=== PATIENT | male | born 1970 | race Caucasian/White ===

== ENCOUNTER 2018-05-22 14:12 | Emergency (ER) | payer MEDICARE, OTHER ==
[~2018-05-22] VITALS: Ht 190.5 cm; Wt 106.8 kg
[~2018-05-22 14:12] MED LIST: ALBU8.5H4 IH; BUDE10.23 IH; CLIN300C85 PO; CLON-527 PO; FURO-150 PO; LISI10TA4 PO; METO50TA16; NAS0.025NS NS; NORCO10T PO; ONDA8TAB9 PO; POTA20TA39 PO; RANI300C7 PO; RISP0.256 PO; STE5T PO; TEG100T PO; WARF3TAB PO; WARF6TAB PO
[2018-05-22 14:36] VITALS: BP 106/76
== END 2018-05-22 16:50 | disposition home or self-care (01) ==
LOC: ER 14:12 → EEVIPCON 14:12 → ER 16:50
DX: S39.012A Strain of muscle, fascia and tendon of lower back, initial encounter (principal); S29.011A Strain of muscle and tendon of front wall of thorax, initial encounter; I25.10 Atherosclerotic heart disease of native coronary artery without angina pectoris; I10 Essential (primary) hypertension; J44.9 Chronic obstructive pulmonary disease, unspecified; G89.29 Other chronic pain; F12.90 Cannabis use, unspecified, uncomplicated; Z88.5 Allergy status to narcotic agent; Z88.8 Allergy status to other drugs, medicaments and biological substances; Z79.01 Long term (current) use of anticoagulants; Z79.899 Other long term (current) drug therapy; Z98.890 Other specified postprocedural states; W01.0XXA Fall on same level from slipping, tripping and stumbling without subsequent striking against object, initial encounter; Y93.89 Activity, other specified; Y92.89 Other specified places as the place of occurrence of the external cause; Y99.8 Other external cause status
CPT/HCPCS: 72100; 99284

== ENCOUNTER 2021-06-26 18:08 | Emergency (ER) | payer BC, MEDICAID ==
[~2021-06-26 18:08] MED LIST changes: +CLIN-97 PO; -CLIN300C85 PO; +LISI10TA27 PO; -LISI10TA4 PO
--- NOTE | 2021-06-26 19:53 | NUR ---
not in lobby. called patient at [id number]. called inside and outside. pt not found
== END 2021-06-26 21:52 | disposition left against medical advice (07) ==
LOC: ER 18:09
DX: Z53.21 Procedure and treatment not carried out due to patient leaving prior to being seen by health care provider (principal)

== ENCOUNTER 2021-09-17 16:45 | Emergency (ER) | payer BC, MEDICAID ==
[~2021-09-17] VITALS: Ht 188 cm; Wt 143.0 kg
--- NOTE | 2021-09-17 19:30 | NUR ---
pt has read fact sheet on [facility], he verbalizes understanding the information about [facility], no questions, "I would like to receive medication"
[2021-09-17] MEDS ORDERED: CASIRIVIMAB/IMDEVIMAB inject. 10 ML in normal saline 100ml IV soln 100 ML IV ONE (19:45)
[2021-09-17 21:14] VITALS: BP 137/100
== END 2021-09-17 21:16 | disposition home or self-care (01) ==
LOC: ER 16:46
DX: U07.1 COVID-19 (principal); I10 Essential (primary) hypertension; J44.9 Chronic obstructive pulmonary disease, unspecified; F43.10 Post-traumatic stress disorder, unspecified; I50.9 Heart failure, unspecified; I11.0 Hypertensive heart disease with heart failure; G89.29 Other chronic pain; I25.10 Atherosclerotic heart disease of native coronary artery without angina pectoris; F12.90 Cannabis use, unspecified, uncomplicated; Z87.11 Personal history of peptic ulcer disease; Z79.01 Long term (current) use of anticoagulants; Z72.89 Other problems related to lifestyle
CPT/HCPCS: 87502; 87503; 87635; 99283; C9803; M0243; Q0244

== ENCOUNTER 2022-06-02 18:56 | Emergency (ER) | payer MEDICARE, MEDICAID ==
[~2022-06-02] VITALS: Ht 188 cm; Wt 143.2 kg
[2022-06-02 19:35] LABS: BASOPHILS # (AUTO) 0.1 X10'3 (0-0.2); EOSINOPHILS # (AUTO) 0.1 X10'3 (0-0.9); LYMPHOCYTES # (AUTO) 1.9 X10'3 (1.1-4.8); MEAN CORPUSCULAR HGB CONC 34.4 g/dL (33.0-36.5); MONOCYTES # (AUTO) 0.5 X10'3 (0-0.9)
[2022-06-02 19:36] LABS: BASOPHILS % (AUTO) 1.4 % (0-1); EOSINOPHILS % (AUTO) 1.7 % (0-6); HEMATOCRIT 46.4 % (42.0-52.0); LYMPHOCYTES % (AUTO) 28.6 % (21-51); MEAN CORPUSCULAR HEMOGLOBIN 29.6 PG (27.0-31.0); MEAN PLATELET VOLUME 9.7 FL (7.4-10.4); MONOCYTES % (AUTO) 6.8 % (2-12); NEUTROPHILS # (AUTO) 4.1 X10'3 (1.8-7.7); NEUTROPHILS % (AUTO) 61.5 % (42-75); PLATELET COUNT 141 X10'3 (140-440); RED BLOOD COUNT 5.39 X10'6 (4.70-6.10); RED CELL DISTRIBUTION WIDTH 13.8 % (11.5-14.5); WHITE BLOOD COUNT 6.7 X10'3 (4.5-11.0)
[2022-06-02 19:49] LABS: ALANINE AMINOTRANSFERASE 33 U/L (12-78); ALBUMIN 3.7 G/DL (3.4-5.0); ALBUMIN/GLOBULIN RATIO 1.1 (1.1-1.5); ALKALINE PHOSPHATASE 83 IU/L (46-116); ANION GAP 9 (8-16); BILIRUBIN,TOTAL 0.4 MG/DL (0.1-1.0); BLOOD UREA NITROGEN 16 MG/DL (7-18); BUN/CREATININE RATIO 15.5 (5.4-32.0); CALCIUM 8.6 MG/DL (8.5-10.1); CHLORIDE 102 MMOL/L (99-107); CREATININE 1.03 MG/DL (0.60-1.10); LIPASE 74 U/L (73-393); SODIUM 138 MMOL/L (135-145); TOTAL CARBON DIOXIDE 27.5 MMOL/L (24-32); TOTAL PROTEIN 7.2 G/DL (6.4-8.2); eGFR 76 ML/MIN
[2022-06-02 20:09] VITALS: BP 154/92
[2022-06-02 20:10] LABS: ASPARTATE AMINO TRANSFERASE 26 U/L (10-37); GLUCOSE 176 MG/DL (70-104)
[2022-06-02 20:11] LABS: POTASSIUM 3.9 MMOL/L (3.5-5.1)
[2022-06-02 20:52] LABS: CLARITY,URINE CLEAR (Clear); COLOR,URINE YELLOW (Yellow); GLUCOSE, URINE NEGATIVE (Neg); KETONES,URINE NEGATIVE (Neg); LEUKOCYTE ESTERASE ,URINE NEGATIVE (Neg); NITRITES, URINE NEGATIVE (Neg); OCCULT BLOOD,URINE NEGATIVE (Neg); PH,URINE 6.5 (4.8-8.0); PROTEIN,URINE NEGATIVE (Neg); UROBILINOGEN,URINE 0.2 E.U/dL (0.2-1.0)
[2022-06-02 20:53] LABS: UA COLLECTION TYPE URINAL
== END 2022-06-02 21:21 | disposition home or self-care (01) ==
LOC: ER 18:58
DX: M54.59 Other low back pain (principal); I11.0 Hypertensive heart disease with heart failure; J44.9 Chronic obstructive pulmonary disease, unspecified; F32.9 Major depressive disorder, single episode, unspecified; F12.10 Cannabis abuse, uncomplicated; F17.210 Nicotine dependence, cigarettes, uncomplicated; Z88.5 Allergy status to narcotic agent; Z88.8 Allergy status to other drugs, medicaments and biological substances; Z79.899 Other long term (current) drug therapy; Z79.2 Long term (current) use of antibiotics
CPT/HCPCS: 36415; 72100; 72220; 80053; 81003; 83690; 85025; 99284

== ENCOUNTER 2022-06-10 19:00 | Emergency (ER) | payer MEDICARE, MEDICAID ==
[~2022-06-10] VITALS: Ht 188 cm; Wt 145.4 kg
[2022-06-10 19:28] VITALS: BP 142/93
[2022-06-10] MEDS ORDERED: dexamethasone sod phosphate 10mg/ml inj IM STA (21:24)
[2022-06-10] MEDS ORDERED: cyclobenzaprine 10mg tablet PO ONE (21:25)
[2022-06-10] MEDS ORDERED: ketorolac tromethamine 15mg/ml inj. IM ONE (21:25)
[2022-06-10] MEDS ORDERED: CYCL-1 PO (21:59)
[2022-06-10] MEDS ORDERED: IBUP-1984 PO (21:59)
[2022-06-10] MEDS ORDERED: METH4TAB3 PO (21:59)
== END 2022-06-10 22:12 | disposition home or self-care (01) ==
LOC: ER 19:02
DX: M54.42 Lumbago with sciatica, left side (principal); I11.0 Hypertensive heart disease with heart failure; F32.A Depression, unspecified; J44.9 Chronic obstructive pulmonary disease, unspecified; F12.10 Cannabis abuse, uncomplicated; Z88.5 Allergy status to narcotic agent; Z88.8 Allergy status to other drugs, medicaments and biological substances; Z79.899 Other long term (current) drug therapy
CPT/HCPCS: 96372; 99284; J1100; J1885

== ENCOUNTER 2022-11-22 18:22 | Emergency (ER) | payer MEDICARE, MEDICAID ==
[~2022-11-22] VITALS: Ht 188 cm; Wt 147.1 kg
[~2022-11-22 18:22] MED LIST changes: -ALBU8.5H4 IH; -BUDE10.23 IH; -CLIN-97 PO; -CLON-527 PO; +CYCL-1 PO; -FURO-150 PO; -METO50TA16; -NAS0.025NS NS; -NORCO10T PO; -ONDA8TAB9 PO; +PANT-47 PO; -POTA20TA39 PO; -RANI300C7 PO; -RISP0.256 PO; -STE5T PO; -TEG100T PO; -WARF3TAB PO; -WARF6TAB PO
[2022-11-22 19:06] LABS: BASOPHILS # (AUTO) 0.1 X10'3 (0-0.2); BASOPHILS % (AUTO) 0.7 % (0-1); EOSINOPHILS # (AUTO) 0.1 X10'3 (0-0.9); EOSINOPHILS % (AUTO) 1.5 % (0-6); HEMOGLOBIN 14.6 g/dl (14.0-17.9); LYMPHOCYTES # (AUTO) 1.6 X10'3 (1.1-4.8); LYMPHOCYTES % (AUTO) 16.8 % (21-51); MEAN CORPUSCULAR HGB CONC 33.1 g/dL (33.0-36.5); MEAN CORPUSCULAR VOLUME 87.6 FL (78-98); MEAN PLATELET VOLUME 9.1 FL (7.4-10.4); MONOCYTES # (AUTO) 0.6 X10'3 (0-0.9); MONOCYTES % (AUTO) 6.1 % (2-12); NEUTROPHILS # (AUTO) 7.3 X10'3 (1.8-7.7); NEUTROPHILS % (AUTO) 74.9 % (42-75); PLATELET COUNT 151 X10'3 (140-440); RED BLOOD COUNT 5.02 X10'6 (4.70-6.10); RED CELL DISTRIBUTION WIDTH 14.1 % (11.5-14.5); WHITE BLOOD COUNT 9.8 X10'3 (4.5-11.0)
[2022-11-22 19:35] LABS: ALANINE AMINOTRANSFERASE 34 U/L (12-78); ALBUMIN 4.1 G/DL (3.4-5.0); ALBUMIN/GLOBULIN RATIO 1.2 (1.1-1.5); ALKALINE PHOSPHATASE 74 IU/L (46-116); ANION GAP 9 (8-16); ASPARTATE AMINO TRANSFERASE 35 U/L (10-37); BILIRUBIN,TOTAL 0.5 MG/DL (0.1-1.0); BLOOD UREA NITROGEN 24 MG/DL (7-18); CALCIUM 8.9 MG/DL (8.5-10.1); CHLORIDE 102 MMOL/L (99-107); CREATININE 1.09 MG/DL (0.60-1.10); GLUCOSE 152 MG/DL (70-104); MAGNESIUM 1.8 MG/DL (1.5-2.4); POTASSIUM 3.9 MMOL/L (3.5-5.1); SODIUM 139 MMOL/L (135-145); TOTAL CARBON DIOXIDE 28.1 MMOL/L (24-32); TOTAL PROTEIN 7.4 G/DL (6.4-8.2); eGFR 71 ML/MIN
[2022-11-22 23:19] VITALS: BP 151/104
== END 2022-11-22 23:21 | disposition home or self-care (01) ==
LOC: ER 18:23
DX: R07.9 Chest pain, unspecified (principal); M54.2 Cervicalgia; R19.7 Diarrhea, unspecified
CPT/HCPCS: 36415; 71045; 80053; 83735; 83880; 84484; 85025; 93005; 99285

== ENCOUNTER 2022-11-29 19:23 | Emergency (ER) | payer MEDICARE, MEDICAID ==
[~2022-11-29] VITALS: Ht 188 cm; Wt 146.8 kg
[2022-11-29 19:28] VITALS: BP 161/109
[2022-11-29] MEDS ORDERED: CEPH250T PO (22:01)
== END 2022-11-29 22:23 | disposition home or self-care (01) ==
LOC: ER 19:25
DX: L03.311 Cellulitis of abdominal wall (principal); G89.29 Other chronic pain; F32.A Depression, unspecified; F12.10 Cannabis abuse, uncomplicated; J44.9 Chronic obstructive pulmonary disease, unspecified; Z88.5 Allergy status to narcotic agent; Z79.899 Other long term (current) drug therapy; Z88.8 Allergy status to other drugs, medicaments and biological substances
CPT/HCPCS: 99283; A6407; A6449

== ENCOUNTER 2022-12-02 19:17 | Emergency (ER) | payer MEDICARE, MEDICAID ==
[~2022-12-02] VITALS: Ht 188 cm; Wt 150.0 kg
[~2022-12-02 19:17] MED LIST changes: +CEPH250T PO
[2022-12-02 19:25] VITALS: BP 122/77
[2022-12-02] MEDS ORDERED: SULF1TAB45 PO (21:49)
[2022-12-02] MEDS ORDERED: CEPH-585 PO (21:49)
[2022-12-02] MEDS ORDERED: sulfamethoxazole/trimethoprim DS (800/160mg) tablet PO ONE (21:50)
[2022-12-02] MEDS ORDERED: cephalexin 250mg capsule PO ONE (21:50)
== END 2022-12-02 22:09 | disposition home or self-care (01) ==
LOC: ER 19:17
DX: L03.221 Cellulitis of neck (principal); J44.9 Chronic obstructive pulmonary disease, unspecified; G89.29 Other chronic pain; F17.200 Nicotine dependence, unspecified, uncomplicated; F12.10 Cannabis abuse, uncomplicated; F32.A Depression, unspecified; Z88.5 Allergy status to narcotic agent; Z88.8 Allergy status to other drugs, medicaments and biological substances; Z79.899 Other long term (current) drug therapy; Z79.1 Long term (current) use of non-steroidal anti-inflammatories (NSAID); Z79.2 Long term (current) use of antibiotics
CPT/HCPCS: 99283

== ENCOUNTER 2023-06-25 03:55 | Emergency (ER) | payer MEDICARE, MEDICAID ==
[~2023-06-25] VITALS: Ht 185.4 cm; Wt 106.4 kg
[~2023-06-25 03:55] MED LIST changes: +CEPH-585 PO
[2023-06-25] MEDS ORDERED: normal saline 1000ML IV soln IVB ONE (04:00)
[2023-06-25 04:02] VITALS: BP 149/91; PULSE 91; RESP 18; TEMP 98; O2SAT 95
[2023-06-25 04:47] LABS: EOSINOPHILS # (AUTO) 0.1 X10'3 (0-0.9); LYMPHOCYTES # (AUTO) 0.3 X10'3 (1.1-4.8); MEAN CORPUSCULAR VOLUME 86.7 FL (78-98); WHITE BLOOD COUNT 8.8 X10'3 (4.5-11.0)
[2023-06-25 04:48] LABS: BASOPHILS % (AUTO) 0.4 % (0-1); EOSINOPHILS % (AUTO) 0.9 % (0-6); HEMATOCRIT 44.9 % (42.0-52.0); HEMOGLOBIN 15.3 g/dl (14.0-17.9); LYMPHOCYTES % (AUTO) 3.2 % (21-51); MEAN CORPUSCULAR HEMOGLOBIN 29.5 PG (27.0-31.0); MEAN PLATELET VOLUME 9.3 FL (7.4-10.4); MONOCYTES # (AUTO) 0.2 X10'3 (0-0.9); MONOCYTES % (AUTO) 2.8 % (2-12); NEUTROPHILS # (AUTO) 8.2 X10'3 (1.8-7.7); NEUTROPHILS % (AUTO) 92.7 % (42-75); PLATELET COUNT 122 X10'3 (140-440); RED BLOOD COUNT 5.18 X10'6 (4.70-6.10); RED CELL DISTRIBUTION WIDTH 13.9 % (11.5-14.5)
[2023-06-25 04:59] LABS: ALANINE AMINOTRANSFERASE 37 U/L (12-78); ALBUMIN 3.8 G/DL (3.4-5.0); ALBUMIN/GLOBULIN RATIO 1.2 (1.1-1.5); ALKALINE PHOSPHATASE 55 IU/L (46-116); ANION GAP 11 (8-16); ASPARTATE AMINO TRANSFERASE 26 U/L (10-37); BILIRUBIN,TOTAL 0.7 MG/DL (0.1-1.0); BLOOD UREA NITROGEN 27 MG/DL (7-18); BUN/CREATININE RATIO 26.2 (10.0-20.0); CALCIUM 9.1 MG/DL (8.5-10.1); CHLORIDE 101 MMOL/L (99-107); CREATININE 1.03 MG/DL (0.60-1.10); GLUCOSE 169 MG/DL (70-104); POTASSIUM 4.2 MMOL/L (3.5-5.1); SODIUM 138 MMOL/L (135-145); TOTAL CARBON DIOXIDE 26.5 MMOL/L (24-32); TOTAL PROTEIN 6.9 G/DL (6.4-8.2); eGFR 76 ML/MIN
[2023-06-25] MEDS ORDERED: ONDA4TAB12 PO (04:59)
--- NOTE | 2023-06-25 05:58 | NUR ---
IV DC'D PT BEING DISCHARGED DRESSING APPLIED
== END 2023-06-25 06:05 | disposition home or self-care (01) ==
LOC: ER 03:55
DX: A08.4 Viral intestinal infection, unspecified (principal); L30.9 Dermatitis, unspecified; R11.2 Nausea with vomiting, unspecified; J44.9 Chronic obstructive pulmonary disease, unspecified; G89.29 Other chronic pain; I50.9 Heart failure, unspecified; F12.90 Cannabis use, unspecified, uncomplicated; Z72.89 Other problems related to lifestyle; Z88.8 Allergy status to other drugs, medicaments and biological substances; Z79.2 Long term (current) use of antibiotics; Z79.899 Other long term (current) drug therapy
CPT/HCPCS: 36415; 80053; 85025; 96360; 99283; J7030

== ENCOUNTER 2023-08-05 15:43 | Emergency (ER) | payer MEDICARE, MEDICAID ==
[~2023-08-05] VITALS: Ht 188 cm; Wt 141.8 kg
[~2023-08-05 15:43] MED LIST changes: +ONDA4TAB12 PO
[2023-08-05 16:03] LABS: BASOPHILS # (AUTO) 0.1 X10'3 (0-0.2); BASOPHILS % (AUTO) 0.6 % (0-1); EOSINOPHILS # (AUTO) 0.1 X10'3 (0-0.9); EOSINOPHILS % (AUTO) 0.7 % (0-6); HEMATOCRIT 45.6 % (42.0-52.0); HEMOGLOBIN 15.2 g/dl (14.0-17.9); LYMPHOCYTES # (AUTO) 1.7 X10'3 (1.1-4.8); LYMPHOCYTES % (AUTO) 16.7 % (21-51); MEAN CORPUSCULAR HEMOGLOBIN 29.5 PG (27.0-31.0); MEAN CORPUSCULAR HGB CONC 33.4 g/dL (33.0-36.5); MEAN CORPUSCULAR VOLUME 88.4 FL (78-98); MONOCYTES # (AUTO) 0.6 X10'3 (0-0.9); MONOCYTES % (AUTO) 5.6 % (2-12); NEUTROPHILS # (AUTO) 7.8 X10'3 (1.8-7.7); NEUTROPHILS % (AUTO) 76.4 % (42-75); PLATELET COUNT 179 X10'3 (140-440); RED BLOOD COUNT 5.16 X10'6 (4.70-6.10); RED CELL DISTRIBUTION WIDTH 13.7 % (11.5-14.5); WHITE BLOOD COUNT 10.2 X10'3 (4.5-11.0)
[2023-08-05 16:26] LABS: ALANINE AMINOTRANSFERASE 46 U/L (12-78); ALBUMIN 4.2 G/DL (3.4-5.0); ALBUMIN/GLOBULIN RATIO 1.2 (1.1-1.5); ALKALINE PHOSPHATASE 66 IU/L (46-116); ANION GAP 3 (8-16); ASPARTATE AMINO TRANSFERASE 22 U/L (10-37); BILIRUBIN,TOTAL 0.6 MG/DL (0.1-1.0); BLOOD UREA NITROGEN 15 MG/DL (7-18); BUN/CREATININE RATIO 15.6 (10.0-20.0); CALCIUM 9.2 MG/DL (8.5-10.1); CHLORIDE 100 MMOL/L (99-107); CREATININE 0.96 MG/DL (0.60-1.10); GLUCOSE 108 MG/DL (70-104); POTASSIUM 4.1 MMOL/L (3.5-5.1); SODIUM 138 MMOL/L (135-145); TOTAL PROTEIN 7.6 G/DL (6.4-8.2); eCRCL 106 ML/MIN; eGFR 83 ML/MIN
[2023-08-05 16:34] LABS: PRO BRAIN NATRIURETIC PEPTIDE 198 PG/ML (0-125)
[2023-08-05] MEDS ORDERED: rifampin 300mg capsule PO STA (19:56)
[2023-08-05] MEDS ORDERED: DOXYCYCLINE 100MG CAPSULE PO STA (19:56)
[2023-08-05] MEDS ORDERED: RIFA300C9 PO (20:12)
[2023-08-05] MEDS ORDERED: DOXY-1 PO (20:12)
[2023-08-05 20:30] VITALS: BP 142/89; PULSE 67; RESP 18; TEMP 98.1; O2SAT 97
== END 2023-08-05 20:33 | disposition home or self-care (01) ==
LOC: ER 15:45
DX: L03.312 Cellulitis of back [any part except buttock and flank] (principal); J44.9 Chronic obstructive pulmonary disease, unspecified; F31.9 Bipolar disorder, unspecified; F12.10 Cannabis abuse, uncomplicated; Z87.81 Personal history of (healed) traumatic fracture; Z88.5 Allergy status to narcotic agent; Z88.8 Allergy status to other drugs, medicaments and biological substances; Z79.899 Other long term (current) drug therapy
CPT/HCPCS: 36415; 71045; 80053; 83880; 84484; 85025; 93005; 99285

== ENCOUNTER 2024-02-09 09:45 | Emergency (ER) | payer OTHER, MEDICARE, MEDICAID ==
[~2024-02-09] VITALS: Ht 188 cm; Wt 157.7 kg
[~2024-02-09 09:45] MED LIST changes: -CEPH-585 PO; -CEPH250T PO; +RIFA300C9 PO
[2024-02-09 12:44] VITALS: BP 142/100; PULSE 89; RESP 17; TEMP 98.2; O2SAT 99
[2024-02-09] MEDS ORDERED: SULF1TAB48 PO (12:44)
[2024-02-09] MEDS ORDERED: MUPI22OI30 TOP (12:44)
== END 2024-02-09 12:55 | disposition home or self-care (01) ==
LOC: ER 09:46
DX: N49.2 Inflammatory disorders of scrotum (principal); J44.9 Chronic obstructive pulmonary disease, unspecified; I50.9 Heart failure, unspecified; F12.90 Cannabis use, unspecified, uncomplicated; Z88.5 Allergy status to narcotic agent; Z88.8 Allergy status to other drugs, medicaments and biological substances; Z79.899 Other long term (current) drug therapy
CPT/HCPCS: 99283

== ENCOUNTER 2024-02-15 19:06 | Emergency (ER) | payer OTHER, MEDICARE, MEDICAID ==
[~2024-02-15] VITALS: Ht 188 cm; Wt 159.0 kg
[~2024-02-15 19:06] MED LIST changes: +MUPI22OI30 TOP; +SULF1TAB48 PO
[2024-02-15 20:03] LABS: BASOPHILS # (AUTO) 0.1 X10'3 (0-0.2); BASOPHILS % (AUTO) 1.1 % (0-1); EOSINOPHILS # (AUTO) 0.2 X10'3 (0-0.9); EOSINOPHILS % (AUTO) 1.8 % (0-6); HEMATOCRIT 50.1 % (42.0-52.0); HEMOGLOBIN 16.6 g/dl (14.0-17.9); LYMPHOCYTES # (AUTO) 2.5 X10'3 (1.1-4.8); LYMPHOCYTES % (AUTO) 26.4 % (21-51); MEAN CORPUSCULAR HEMOGLOBIN 28.9 PG (27.0-31.0); MEAN CORPUSCULAR HGB CONC 33.1 g/dL (33.0-36.5); MEAN CORPUSCULAR VOLUME 87.3 FL (78-98); MEAN PLATELET VOLUME 9.5 FL (7.4-10.4); MONOCYTES # (AUTO) 0.8 X10'3 (0-0.9); NEUTROPHILS # (AUTO) 5.9 X10'3 (1.8-7.7); NEUTROPHILS % (AUTO) 62.7 % (42-75); PLATELET COUNT 174 X10'3 (140-440); RED BLOOD COUNT 5.74 X10'6 (4.70-6.10); RED CELL DISTRIBUTION WIDTH 14.5 % (11.5-14.5); WHITE BLOOD COUNT 9.4 X10'3 (4.5-11.0)
[2024-02-15 20:04] LABS: ALANINE AMINOTRANSFERASE 63 U/L (12-78); ALBUMIN 4.4 G/DL (3.4-5.0); ALBUMIN/GLOBULIN RATIO 1.1 (1.1-1.5); ALKALINE PHOSPHATASE 63 IU/L (46-116); AMYLASE 45 U/L (25-115); ANION GAP 6 (8-16); ASPARTATE AMINO TRANSFERASE 32 U/L (10-37); BILIRUBIN,TOTAL 0.5 MG/DL (0.1-1.0); BLOOD UREA NITROGEN 21 MG/DL (7-18); CALCIUM 10.1 MG/DL (8.5-10.1); CHLORIDE 102 MMOL/L (99-107); CREATININE 1.31 MG/DL (0.60-1.10); GLUCOSE 126 MG/DL (70-104); LIPASE 26 U/L (16-77); MAGNESIUM 2.2 MG/DL (1.5-2.4); POTASSIUM 4.8 MMOL/L (3.5-5.1); SODIUM 140 MMOL/L (135-145); TOTAL CARBON DIOXIDE 31.8 MMOL/L (24-32); TOTAL PROTEIN 8.4 G/DL (6.4-8.2); eCRCL 77 ML/MIN; eGFR 57 ML/MIN
[2024-02-15] MEDS ORDERED: iohexol 300mg/ml 100ml inj. ONE (20:08)
[2024-02-15 21:12] VITALS: BP 127/99; PULSE 69; RESP 18; TEMP 98; O2SAT 95
[2024-02-15 21:26] LABS: BILIRUBIN,URINE NEGATIVE (Neg); CLARITY,URINE CLEAR (Clear); COLOR,URINE STRAW (Yellow); GLUCOSE, URINE NEGATIVE (Neg); KETONES,URINE NEGATIVE (Neg); LEUKOCYTE ESTERASE ,URINE NEGATIVE (Neg); NITRITES, URINE NEGATIVE (Neg); OCCULT BLOOD,URINE NEGATIVE (Neg); PROTEIN,URINE NEGATIVE (Neg); UROBILINOGEN,URINE 0.2 E.U/dL (0.2-1.0)
[2024-02-15 21:28] LABS: UA COLLECTION TYPE CLN CATCH MIDSTREAM
[2024-02-15] MEDS ORDERED: DIPH25CA52 PO (21:48)
[2024-02-15] MEDS ORDERED: DOCU-148 PO (21:48)
== END 2024-02-15 21:53 | disposition home or self-care (01) ==
LOC: ER 19:07
DX: K59.00 Constipation, unspecified (principal); R21 Rash and other nonspecific skin eruption; E86.0 Dehydration; J44.9 Chronic obstructive pulmonary disease, unspecified; G89.29 Other chronic pain; F32.A Depression, unspecified; I50.9 Heart failure, unspecified; I25.10 Atherosclerotic heart disease of native coronary artery without angina pectoris; F12.90 Cannabis use, unspecified, uncomplicated; Z72.89 Other problems related to lifestyle; Z88.5 Allergy status to narcotic agent; Z88.8 Allergy status to other drugs, medicaments and biological substances; Z79.899 Other long term (current) drug therapy; Z79.2 Long term (current) use of antibiotics
CPT/HCPCS: 36415; 71045; 74177; 80053; 81003; 82150; 83690; 83735; 84484; 85025; 93005; 99285; J3490; J7030; Q9967

== ENCOUNTER 2024-05-29 13:00 | Inpatient (IN) | payer MEDICARE, MEDICAID ==
[~2024-05-29] VITALS: Ht 188 cm; Wt 160.7 kg
[~2024-05-29 13:00] MED LIST changes: +DIPH25CA52 PO; +DOCU-148 PO; -MUPI22OI30 TOP; +ONDA-243 PO; -ONDA4TAB12 PO; +RIFA300C65 PO; -RIFA300C9 PO; -SULF1TAB48 PO
[2024-05-29] MEDS ORDERED: LEVO25TA7 PO (13:17)
[2024-05-29] MEDS ORDERED: WARF-55 PO (13:17)
[2024-05-29] MEDS ORDERED: METO25TA6 PO (13:17)
[2024-05-29 13:46] LABS: BASOPHILS # (AUTO) 0.1 X10'3 (0-0.2); BASOPHILS % (AUTO) 1.1 % (0-1); EOSINOPHILS # (AUTO) 0.1 X10'3 (0-0.9); EOSINOPHILS % (AUTO) 1.3 % (0-6); HEMATOCRIT 44.1 % (42.0-52.0); HEMOGLOBIN 14.6 g/dl (14.0-17.9); LYMPHOCYTES # (AUTO) 1.6 X10'3 (1.1-4.8); LYMPHOCYTES % (AUTO) 22.1 % (21-51); MEAN CORPUSCULAR HEMOGLOBIN 29.4 PG (27.0-31.0); MEAN CORPUSCULAR HGB CONC 33.1 g/dL (33.0-36.5); MEAN CORPUSCULAR VOLUME 88.9 FL (78-98); MONOCYTES # (AUTO) 0.5 X10'3 (0-0.9); NEUTROPHILS # (AUTO) 4.9 X10'3 (1.8-7.7); NEUTROPHILS % (AUTO) 68.5 % (42-75); PLATELET COUNT 127 X10'3 (140-440); RED BLOOD COUNT 4.96 X10'6 (4.70-6.10); RED CELL DISTRIBUTION WIDTH 14.3 % (11.5-14.5); WHITE BLOOD COUNT 7.1 X10'3 (4.5-11.0)
[2024-05-29 14:00] LABS: ALANINE AMINOTRANSFERASE 56 U/L (12-78); ALBUMIN 3.7 G/DL (3.4-5.0); ALBUMIN/GLOBULIN RATIO 1.1 (1.1-1.5); ALKALINE PHOSPHATASE 60 IU/L (46-116); ANION GAP 4 (8-16); ASPARTATE AMINO TRANSFERASE 34 U/L (10-37); BILIRUBIN,TOTAL 0.8 MG/DL (0.1-1.0); BLOOD UREA NITROGEN 20 MG/DL (7-18); BUN/CREATININE RATIO 16.3 (10.0-20.0); CALCIUM 8.5 MG/DL (8.5-10.1); CHLORIDE 101 MMOL/L (99-107); CREATININE 1.23 MG/DL (0.60-1.10); GLUCOSE 169 MG/DL (70-104); POTASSIUM 3.9 MMOL/L (3.5-5.1); SODIUM 138 MMOL/L (135-145); TOTAL CARBON DIOXIDE 33.4 MMOL/L (24-32); eCRCL 82 ML/MIN; eGFR 62 ML/MIN
[2024-05-29 14:08] LABS: PRO BRAIN NATRIURETIC PEPTIDE 502 PG/ML (0-125)
[2024-05-29] MEDS ORDERED: mag hydrox/Alum hydrox/simeth 30ml oral suspension PO PRN (15:10)
[2024-05-29] MEDS ORDERED: magnesium 4gm in 100ml NS 100 ML IV PRN (15:10)
[2024-05-29] MEDS ORDERED: acetaminophen 325mg tablet PO PRN (15:10)
[2024-05-29] MEDS ORDERED: ondansetron/PF 4mg/2ml inj IV PRN (15:10)
[2024-05-29] MEDS ORDERED: potassium Cl 20 mEq SR tablet PO PRN ×2 (15:10)
[2024-05-29] MEDS ORDERED: magnesium Cl slow-release 64mg tablet PO PRN (15:10)
[2024-05-29] MEDS ORDERED: magnesium 2GM in 50ml NS 50 ML IV PRN (15:10)
[2024-05-29] MEDS ORDERED: potassium Cl 40MEQ/1/2NS 520ml 520 ML IV PRN (15:10)
[2024-05-29] MEDS ORDERED: magnesium hydroxide 30ml (MOM) UD suspension PO PRN (15:10)
[2024-05-29 15:41] LABS: APTT 33 SECONDS (22-32); INR 3.2 INR; PROTHROMBIN TIME 30.7 SECONDS (9.0-12.0)
[2024-05-29 15:43] LABS: MAGNESIUM 2.1 MG/DL (1.5-2.4)
[2024-05-29] MEDS ORDERED: dextrose 50%-water 50ml dispensing syringe IV PRN ×2 (17:10)
[2024-05-29] MEDS ORDERED: DEXTROSE 15 GM of carb/4 tabs (each vial/BOTTLE has 4 tablets) PO PRN ×2 (17:10)
[2024-05-29] MEDS ORDERED: glucagon, human recombinant 1mg kit SUBCUT PRN (17:10)
[2024-05-29 17:38] LABS: HEMOGLOBIN A1C 7.6 % (4.5-6.2)
[2024-05-29 18:32] LABS: BILIRUBIN,URINE NEGATIVE (Neg); CLARITY,URINE CLEAR (Clear); GLUCOSE, URINE NEGATIVE (Neg); KETONES,URINE NEGATIVE (Neg); LEUKOCYTE ESTERASE ,URINE NEGATIVE (Neg); NITRITES, URINE NEGATIVE (Neg); OCCULT BLOOD,URINE NEGATIVE (Neg); PH,URINE 7.5 (4.8-8.0); PROTEIN,URINE NEGATIVE (Neg); UROBILINOGEN,URINE 0.2 E.U/dL (0.2-1.0)
[2024-05-29 18:40] LABS: UA COLLECTION TYPE CLN CATCH MIDSTREAM
[2024-05-29 18:41] LABS: COLOR,URINE DARK YELLOW (Yellow)
[2024-05-29] MEDS: PERFLUTREN PROTEIN-A MICROSPHR (Optison) 0.22 MG/ML 3ML VIAL IV ONE (18:41)
[2024-05-29 18:48] LABS: THYROID STIMULATING HORMONE 5.27 ulU/ml (0.34-4.50)
[2024-05-29] MEDS: furosemide 10 MG/1 ML 10ml inj IV ONE (19:11)
[2024-05-29] MEDS: K and/or MAG REPLACEMENT MC SCH (20:00)
[2024-05-29] MEDS: furosemide 10 MG/1 ML 10ml inj IV SCH (20:00)
[2024-05-29] MEDS: INSULIN LISPRO 100 UNIT/ML INSULN.PEN MULTI-DOSE SQ SCH (21:00)
[2024-05-29] MEDS: lisinopril 10 MG tablet PO SCH (21:24)
[2024-05-29] MEDS: warfarin 5mg tablet PO ONE (21:25)
[2024-05-29 22:50] VITALS: BP 153/80; PULSE 48; RESP 18; TEMP 97.7; O2SAT 95
[2024-05-30] VITALS: RESP 14; O2SAT 95
[2024-05-30 02:00] VITALS: BP 140/85; PULSE 49; RESP 14; TEMP 97.9; O2SAT 92
[2024-05-30 02:44] LABS: MAGNESIUM 2.2 MG/DL (1.5-2.4); PHOSPHORUS 3.7 MG/DL (2.3-4.5)
[2024-05-30 06:00] VITALS: BP 154/78; PULSE 54; RESP 20; TEMP 98; O2SAT 95
[2024-05-30] MEDS: levoTHYROXINE 25mcg tablet PO SCH (07:35)
[2024-05-30 08:15] LABS: BASOPHILS % (AUTO) 0.5 % (0-1); EOSINOPHILS # (AUTO) 0.1 X10'3 (0-0.9); EOSINOPHILS % (AUTO) 1.5 % (0-6); HEMATOCRIT 45.3 % (42.0-52.0); LYMPHOCYTES # (AUTO) 1.9 X10'3 (1.1-4.8); LYMPHOCYTES % (AUTO) 24.8 % (21-51); MEAN CORPUSCULAR HEMOGLOBIN 29.3 PG (27.0-31.0); MEAN CORPUSCULAR VOLUME 88.6 FL (78-98); MEAN PLATELET VOLUME 10.9 FL (7.4-10.4); MONOCYTES # (AUTO) 0.7 X10'3 (0-0.9); NEUTROPHILS # (AUTO) 4.8 X10'3 (1.8-7.7); NEUTROPHILS % (AUTO) 64.2 % (42-75); PLATELET COUNT 130 X10'3 (140-440); RED BLOOD COUNT 5.12 X10'6 (4.70-6.10); RED CELL DISTRIBUTION WIDTH 14.4 % (11.5-14.5); WHITE BLOOD COUNT 7.5 X10'3 (4.5-11.0)
[2024-05-30 08:18] LABS: ALANINE AMINOTRANSFERASE 66 U/L (12-78); ALBUMIN 3.9 G/DL (3.4-5.0); ALBUMIN/GLOBULIN RATIO 1.2 (1.1-1.5); ALKALINE PHOSPHATASE 45 IU/L (46-116); ANION GAP 11 (8-16); ASPARTATE AMINO TRANSFERASE 41 U/L (10-37); BILIRUBIN,TOTAL 0.9 MG/DL (0.1-1.0); BLOOD UREA NITROGEN 18 MG/DL (7-18); BUN/CREATININE RATIO 17.3 (10.0-20.0); CHLORIDE 101 MMOL/L (99-107); CREATININE 1.04 MG/DL (0.60-1.10); GLUCOSE 135 MG/DL (70-104); POTASSIUM 3.6 MMOL/L (3.5-5.1); SODIUM 141 MMOL/L (135-145); TOTAL CARBON DIOXIDE 29.4 MMOL/L (24-32); TOTAL PROTEIN 7.2 G/DL (6.4-8.2); eCRCL 97 ML/MIN; eGFR 75 ML/MIN
[2024-05-30 11:00] VITALS: BP 164/74; PULSE 50; RESP 19; TEMP 98; O2SAT 94
[2024-05-30 12:38] LABS: CHOL/HDL RATIO 5.2 (0.00-4.99); CHOLESTEROL 162 MG/DL (0-200); HDL CHOLESTEROL 31 MG/DL (35-60); LDL CHOLESTEROL 105 MG/DL (50-100); TRIGLYCERIDES 207 MG/DL (20-135)
[2024-05-30] MEDS: amLODIPine 5mg tablet PO SCH (13:57)
[2024-05-30 15:00] VITALS: BP 164/98; PULSE 56; RESP 18; TEMP 98.3; O2SAT 94
[2024-05-30] MEDS ORDERED: LISI10TA27 PO (15:49)
[2024-05-30] MEDS ORDERED: LEVO25TA7 PO (15:49)
[2024-05-30] MEDS ORDERED: CARV3.122 PO (15:49)
[2024-05-30] MEDS ORDERED: ATOR20TA66 PO (15:49)
[2024-05-30] MEDS ORDERED: METF-1203 PO (15:49)
[2024-05-30] MEDS ORDERED: FURO-150 PO (15:51)
[2024-05-30] MEDS ORDERED: warfarin 5mg tablet PO ONE (21:00)
[2024-05-31] MEDS ORDERED: levoTHYROXINE 25mcg tablet PO SCH (07:00)
[2024-05-31] MEDS ORDERED: lisinopril 10 MG tablet PO SCH (08:00)
== END 2024-05-30 17:46 | disposition home or self-care (01) | DRG 291 ==
LOC: ER 13:01 → ED HOLD 15:15 → PCU 3S 22:52
PROVIDERS: ADMIT Internal Medicine; ATTEND Internal Medicine
DX: I11.0 Hypertensive heart disease with heart failure (principal); I50.33 Acute on chronic diastolic (congestive) heart failure; N17.0 Acute kidney failure with tubular necrosis; G89.29 Other chronic pain; F32.A Depression, unspecified; E03.9 Hypothyroidism, unspecified; J44.9 Chronic obstructive pulmonary disease, unspecified; E11.65 Type 2 diabetes mellitus with hyperglycemia; T50.995A Adverse effect of other drugs, medicaments and biological substances, initial encounter; Z88.5 Allergy status to narcotic agent; Z88.8 Allergy status to other drugs, medicaments and biological substances; Z79.899 Other long term (current) drug therapy; Z95.2 Presence of prosthetic heart valve; Y92.89 Other specified places as the place of occurrence of the external cause; Z87.11 Personal history of peptic ulcer disease
CPT/HCPCS: 36415; 71045; 80053; 80061; 81003; 82948; 83036; 83735; 83880; 84100; 84443; 84484; 85025; 85610; 85730; 87081; 93005; 93306; 99285; G0378; J1815; J1940

== ENCOUNTER 2024-07-12 22:12 | Emergency (ER) | payer MEDICARE, MEDICAID ==
[~2024-07-12] VITALS: Ht 190.5 cm; Wt 156.9 kg
[~2024-07-12 22:12] MED LIST changes: +ATOR20TA66 PO; +CARV3.122 PO; -CYCL-1 PO; -DIPH25CA52 PO; -DOCU-148 PO; +FURO-150 PO; +LEVO25TA7 PO; -ONDA-243 PO; -PANT-47 PO; -RIFA300C65 PO; +WARF-55 PO
[2024-07-12 23:49] VITALS: PULSE 75
[2024-07-13] MEDS ORDERED: POTA-207 PO (00:15)
[2024-07-13] MEDS ORDERED: FURO-150 PO (00:15)
[2024-07-13] MEDS ORDERED: CEPH-585 PO (00:15)
[2024-07-13] MEDS: cephalexin 250mg capsule PO ONE (00:23)
[2024-07-13 00:35] VITALS: BP 146/92; RESP 18; TEMP 98.4; O2SAT 99
== END 2024-07-13 00:47 | disposition home or self-care (01) ==
LOC: ER 22:13
DX: L03.116 Cellulitis of left lower limb (principal); M79.662 Pain in left lower leg; J44.9 Chronic obstructive pulmonary disease, unspecified; F32.A Depression, unspecified; I50.9 Heart failure, unspecified; F12.90 Cannabis use, unspecified, uncomplicated; Z88.5 Allergy status to narcotic agent; Z88.8 Allergy status to other drugs, medicaments and biological substances; Z79.899 Other long term (current) drug therapy; Z79.2 Long term (current) use of antibiotics
CPT/HCPCS: 93971; 99284

== ENCOUNTER 2024-07-20 18:17 | Emergency (ER) | payer MEDICARE, MEDICAID ==
[~2024-07-20] VITALS: Ht 188 cm; Wt 158.6 kg
[~2024-07-20 18:17] MED LIST changes: +CEPH-585 PO; +POTA-207 PO
[2024-07-20] MEDS ORDERED: SULF1TAB49 PO (19:56)
[2024-07-20 20:22] VITALS: BP 147/73; PULSE 67; RESP 15; TEMP 98.2; O2SAT 94
== END 2024-07-20 20:24 | disposition home or self-care (01) ==
LOC: ER 18:18
DX: L03.116 Cellulitis of left lower limb (principal); J44.9 Chronic obstructive pulmonary disease, unspecified; G89.29 Other chronic pain; F32.A Depression, unspecified; I50.9 Heart failure, unspecified; F12.90 Cannabis use, unspecified, uncomplicated; Z88.8 Allergy status to other drugs, medicaments and biological substances; Z79.899 Other long term (current) drug therapy; Z79.2 Long term (current) use of antibiotics; Z60.2 Problems related to living alone; Z98.890 Other specified postprocedural states
CPT/HCPCS: 99283

== ENCOUNTER 2024-08-14 22:57 | Emergency (ER) | payer MEDICARE, MEDICAID ==
[~2024-08-14] VITALS: Ht 188 cm; Wt 159.1 kg
[~2024-08-14 22:57] MED LIST changes: -POTA-207 PO
[2024-08-15 01:55] VITALS: BP 107/67; PULSE 88; RESP 14; TEMP 98.1; O2SAT 99
== END 2024-08-15 01:59 | disposition home or self-care (01) ==
LOC: ER 22:58
DX: Z00.00 Encounter for general adult medical examination without abnormal findings (principal); J44.9 Chronic obstructive pulmonary disease, unspecified; G89.29 Other chronic pain; F32.A Depression, unspecified; I50.9 Heart failure, unspecified; F12.90 Cannabis use, unspecified, uncomplicated; Z88.8 Allergy status to other drugs, medicaments and biological substances; Z79.899 Other long term (current) drug therapy; Z79.01 Long term (current) use of anticoagulants; Z60.2 Problems related to living alone; Z98.890 Other specified postprocedural states
CPT/HCPCS: 99281

== ENCOUNTER 2024-09-16 20:57 | Emergency (ER) | payer MEDICARE, MEDICAID ==
[~2024-09-16] VITALS: Ht 188 cm; Wt 160.7 kg
[~2024-09-16 20:57] MED LIST changes: -CEPH-585 PO
[2024-09-16 21:02] VITALS: BP 197/109; PULSE 71; O2SAT 95
[2024-09-16] MEDS: ketorolac trometh 15mg/ml vial 15 MG/ML ML IM ONE (22:02)
[2024-09-16 22:27] VITALS: RESP 22
[2024-09-16 22:32] VITALS: TEMP 97.4
== END 2024-09-16 22:35 | disposition home or self-care (01) ==
LOC: ER 20:57
DX: S32.2XXA Fracture of coccyx, initial encounter for closed fracture (principal); S83.91XA Sprain of unspecified site of right knee, initial encounter; J44.9 Chronic obstructive pulmonary disease, unspecified; I50.9 Heart failure, unspecified; G89.29 Other chronic pain; F32.A Depression, unspecified; Z98.890 Other specified postprocedural states; Z88.8 Allergy status to other drugs, medicaments and biological substances; Z88.5 Allergy status to narcotic agent; Z79.899 Other long term (current) drug therapy; W10.8XXA Fall (on) (from) other stairs and steps, initial encounter; Y93.01 Activity, walking, marching and hiking; Y92.89 Other specified places as the place of occurrence of the external cause; Y99.8 Other external cause status; W10.9XXA Fall (on) (from) unspecified stairs and steps, initial encounter
CPT/HCPCS: 72100; 73590; 96372; 99284; J1885

== ENCOUNTER 2024-09-21 20:38 | Emergency (ER) | payer OTHER, MEDICARE, MEDICAID ==
[~2024-09-21] VITALS: Ht 188 cm; Wt 160.0 kg
[2024-09-21 20:45] VITALS: BP 168/85; PULSE 72; TEMP 97.9; O2SAT 98
[2024-09-22] MEDS ORDERED: FURO-150 PO (03:53)
[2024-09-22] MEDS ORDERED: DOXY-1 PO (03:53)
[2024-09-22] MEDS ORDERED: POTA8CAP20 PO (03:53)
[2024-09-22] MEDS: DOXYCYCLINE 100MG CAPSULE PO STA (04:02)
[2024-09-22] MEDS: potassium Cl 20 mEq SR tablet PO ONE (04:02)
[2024-09-22] MEDS: furosemide 20MG tablet PO ONE (04:03)
[2024-09-22 04:15] VITALS: RESP 18
== END 2024-09-22 04:17 | disposition home or self-care (01) ==
LOC: ER 20:39
DX: L03.115 Cellulitis of right lower limb (principal); E78.00 Pure hypercholesterolemia, unspecified; I11.0 Hypertensive heart disease with heart failure; I50.9 Heart failure, unspecified; I25.2 Old myocardial infarction; J44.9 Chronic obstructive pulmonary disease, unspecified; F17.200 Nicotine dependence, unspecified, uncomplicated; F12.90 Cannabis use, unspecified, uncomplicated; E11.9 Type 2 diabetes mellitus without complications; Z88.5 Allergy status to narcotic agent; Z88.8 Allergy status to other drugs, medicaments and biological substances; Z79.899 Other long term (current) drug therapy; Z87.11 Personal history of peptic ulcer disease; Z79.01 Long term (current) use of anticoagulants; W19.XXXA Unspecified fall, initial encounter; Y93.89 Activity, other specified; Y92.89 Other specified places as the place of occurrence of the external cause; Y99.8 Other external cause status
CPT/HCPCS: 82948; 99284; A6449

== ENCOUNTER 2025-05-23 14:51 | Emergency (ER) | payer MEDICARE, MEDICAID ==
[~2025-05-23] VITALS: Ht 188 cm; Wt 118.7 kg
--- NOTE | 2025-05-23 14:57 | Physician Documentation ---
History of Present Illness Stated Complaint: HERNIA PAIN Primary Medical Doctor: Sang alcantar HPI 54-year-old male presents via EMS for complaint of a chronic umbilical hernia and diarrhea. He states that he was seen at [facility] yesterday fully evaluated get he did not feel he got the appropriate treatment. States he wants to be treated for his pain today. Day of Onset: May 23, 2025 Medication Reconciliation Allergies: Coded Allergies: codeine (Verified Allergy, Unknown, 05/23/25) mirtazapine (Unverified Adverse Reaction, Severe, SEVERE AGITATION, 05/23/25) olanzapine (Verified Adverse Reaction, Severe, "makes me go crazier than hell", 05/23/25) Scheduled Atorvastatin Calcium (Atorvastatin Calcium), 20 MG PO DAILY Carvedilol (Carvedilol), 1 TAB PO Q12H Furosemide (Lasix), 20 MG PO DAILY Levothyroxine Sodium (Levothyroxine Sodium), 1 TAB PO DAILY Lisinopril (Lisinopril), 1 TAB PO DAILY Warfarin Sodium (Warfarin Sodium), 1 TAB PO DAILY, (Reported) Past Medical History Past Medical History: High Cholesterol, Hypertension, Myocardial Infarction, Va lve Insuffciency, COPD, Hepatitis C, Peptic Ulcer Disease, Diabetes, Chronic Pain, Extremity Fracture, Depression Past Surgical History: heart valve surgery, orthopedic surgeries Patient History: (CHF) Congestive heart failure MOTHER (Diabetes mellitus and Gastric cancer) Alcohol Use: None Drug Use: marijuana Lives with: Alone Lives In: Home Physical Exam Physical Exam General: Alert, no apparent distress. HEENT: PERRL, EOMI, no injection, moist mucous membranes. Gastrointestinal: Soft, tender to mid epigastric region. Extremities: Normal range of motion, no deformity. Neurologic: Oriented x4. Psychiatric: Normal mood and affect. Skin: Normal color, warm and dry. No edema, no ecchymosis. Medical Decision Making Findings In his labs do show signs of some mild at infection which may or may not be diverticulitis. I have access to the imaging that was done at [facility]. Unable to fully complete nine evaluation and treatment. Patient states that he received noticed of the antibiotics or medication that were sent to his pharmacy of related to his visit at [facility] yesterday. Patient states the heat and feeling a reason to stay here in ED and we will go pickle solution maker his medication. Differential Dx:Considerations: Include: AAA, Angina/[place], Aortic dissection, Appendicitis, Bowel obstruction, Cholangitis, Cholelithasis, Constipation, Diverticular disease, Esophageal rupture, Esophagitis, Gastritis/PUD, Gastroe nteritis, GI hemorrhage, Hernia, Hepatitis, Inflammatory BD, Ischemic bowel, Pancreatitis, Porphyria, Testicular torsion, Trauma, intraabdominal, Urinary obstruction, Urinary tract infection, Urolithiasis, Other Departure Disposition: 01 HOME / SELF CARE / HOMELESS Impression: Primary Impression: Abdominal pain Condition: Stable Referrals: NO PRIMARY CARE PROVIDER (PCP) Signature Scribe Signature: n Attestation: Scribed for Chidi Muller Patient Services Coordinator by Chidi Mckeon NP . 05/23/25 23:23 CHIDI MULLER NP May 23, 2025 14:57
[2025-05-23 15:32] VITALS: BP 121/71; TEMP 97.2
[2025-05-23 16:32] LABS: BASOPHILS % (AUTO) 0.3 % (0-1); EOSINOPHILS # (AUTO) 0.1 X10'3 (0-0.9); EOSINOPHILS % (AUTO) 0.5 % (0-6); HEMATOCRIT 53.2 % (42.0-52.0); HEMOGLOBIN 17.9 g/dl (14.0-17.9); LYMPHOCYTES # (AUTO) 0.8 X10'3 (1.1-4.8); LYMPHOCYTES % (AUTO) 7.1 % (21-51); MEAN CORPUSCULAR HEMOGLOBIN 28.4 PG (27.0-31.0); MEAN CORPUSCULAR HGB CONC 33.7 g/dL (33.0-36.5); MEAN CORPUSCULAR VOLUME 84.3 FL (78-98); MEAN PLATELET VOLUME 9.9 FL (7.4-10.4); MONOCYTES # (AUTO) 1.2 X10'3 (0-0.9); MONOCYTES % (AUTO) 10.8 % (2-12); NEUTROPHILS # (AUTO) 9.4 X10'3 (1.8-7.7); NEUTROPHILS % (AUTO) 81.3 % (42-75); PLATELET COUNT 209 X10'3 (140-440); RED CELL DISTRIBUTION WIDTH 14.2 % (11.5-14.5); WHITE BLOOD COUNT 11.6 X10'3 (4.5-11.0)
[2025-05-23 16:43] LABS: ALANINE AMINOTRANSFERASE 37 U/L (12-78); ALKALINE PHOSPHATASE 51 IU/L (46-116); ANION GAP 10 (8-16); ASPARTATE AMINO TRANSFERASE 17 U/L (10-37); BILIRUBIN,TOTAL 1.6 MG/DL (0.1-1.0); BLOOD UREA NITROGEN 38 MG/DL (7-18); BUN/CREATININE RATIO 16.4 (10.0-20.0); CALCIUM 9.7 MG/DL (8.5-10.1); CHLORIDE 96 MMOL/L (99-107); CREATININE 2.32 MG/DL (0.60-1.10); GLUCOSE 191 MG/DL (70-104); LIPASE 21 U/L (16-77); POTASSIUM 4.8 MMOL/L (3.5-5.1); SODIUM 133 MMOL/L (135-145); TOTAL CARBON DIOXIDE 26.9 MMOL/L (24-32); TOTAL PROTEIN 8.2 G/DL (6.4-8.2); eCRCL 43 ML/MIN; eGFR 30 ML/MIN
[2025-05-23 18:46] VITALS: PULSE 87; RESP 15; O2SAT 99
[2025-05-23] MEDS ORDERED: morphine 4 MG/ML inj SYRINge IV ONE (18:55)
[2025-05-23] MEDS ORDERED: ondansetron/PF 4mg/2ml inj IV ONE (18:55)
== END 2025-05-23 19:33 | disposition left against medical advice (07) ==
LOC: ER 14:52
DX: R10.13 Epigastric pain (principal); E11.9 Type 2 diabetes mellitus without complications; E78.00 Pure hypercholesterolemia, unspecified; F32.A Depression, unspecified; I11.0 Hypertensive heart disease with heart failure; I50.9 Heart failure, unspecified; I25.2 Old myocardial infarction; J44.9 Chronic obstructive pulmonary disease, unspecified; Z88.5 Allergy status to narcotic agent
CPT/HCPCS: 36415; 80053; 83690; 85025; 99283